=== PATIENT | male | born 1990 | race Hispanic/Latino ===

== ENCOUNTER 2023-03-30 22:48 | Emergency (ER) | payer BC, SELFPAY ==
--- NOTE | ~2023-03-30 | CT_ITS ---
CT of the Abdomen and Pelvis: Indication: Epigastric pain Technique: 2.5 mm axial scans were obtained through the abdomen and pelvis following intravenous adm inistration of 100 cc of Omnipaque 350. Dose reduction technique was used on this scan by utilizing a utomated exposure control and iterative reconstruction technique. The dose-length product (DLP) was 9 54.11 mGy-cm. Findings: Scans through the lung bases are unremarkable. The liver, spleen, pancreas, gallbladder, adrenals and kidneys are within normal limits. No evidence of aortic aneurysm. No lymphadenopathy. No bowel obstruction or bowel wall thickening. There is no evidence to suggest acute appendicitis. Mo derate fat-containing umbilical hernia present. Images through the pelvis were performed. Urinary bladder unremarkable. Prostate gland and seminal ve sicles are unremarkable. No ascites. Impression: Moderate fat-containing umbilical hernia. Reviewed, dictated and finalized at [facility]. CTOR OF GUIDANCE Impression: Moderate fat-containing umbilical hernia.
[2023-03-30 22:50] VITALS: BP 126/51; PULSE 71; RESP 20; TEMP 36.8; O2SAT 100
--- NOTE | 2023-03-30 23:51 | ECG_ITS ---
Measurements Intervals [place] Rate: 69 P: 62 [place]: 233 QRS: 14 QRSD: 88 T: 39 QT: 370 QTc: 397 Interpretive Statements SINUS RHYTHM WITH FIRST DEGREE AV BLOCK BORDERLINE ECG NO PREVIOUS ECG AVAILABLE FOR COMPARISON Electronically Signed On 03-31-2023 5:29:15 [employer]OW [employer] C[employer] by Jono Chapa D.O.
--- NOTE | 2023-03-31 00:07 | ED.ABDPAIN ---
HPI - Abdominal Pain General Chief Complaint: Abdominal Pain Stated Complaint: abd pain Time Seen by Provider: 03/30/23 23:24 Source: patient Mode of arrival: ambulatory Limitations: no limitations History of Present Illness HPI narrative: This is a 33 year old male that presents to the ER for epigastric pain. Ongoing over the last couple of hours. Reports associated nausea, without vomiting. Also reports shortness of breath. Reports the pain radiates into his chest and back. Denies fevers. Related Data Allergies Allergy/AdvReac Type Severity Reaction Status Date / Time No Known Allergies Allergy Verified 03/31/23 00:04 Review of Systems Review of Systems: CONSTITUTIONAL: Denies fever CARDIOVASCULAR: Reports chest pain. Denies edema. RESPIRATORY: Reports dyspnea. GASTROINTESTINAL: Reports abdominal pain, nausea. Denies vomiting, or diarrhea. All systems reviewed & are unremarkable except as noted in HPI and below PMFSH Past Medical History Medical History (Updated 03/31/23 @ 02:43 by Linnette Wilcox PA-C) No active medical problems Social History Social History (Updated 03/31/23 @ 00:10 by Linnette Wilcox PA-C) Substance use: never Exam Narrative: GENERAL: Well-appearing, well-nourished, and in no acute distress. HEAD: Normocephalic, atraumatic. EYES: EOMI. CHEST: Clear to auscultation. No respiratory distress. No wheezes rales or rhonchi HEART: Regular rate and rhythm. No murmur heard. Normal peripheral pulses. ABDOMEN: Soft, nondistended, normal active bowel sounds. Tender to palpation in the epigastrium, without guarding EXTREMITIES: Normal range of motion. No edema. SKIN: Warm, dry, no rash. NEURO: No focal deficits. Alert and oriented x3. PSYCH: Normal mood and affect Course Course Emergency Course: Patient updated on workup and agrees with plan of care. Reports feeling much better Consultations Consultation #1: Spoke with Dr. Davis about patient and workup who agrees with low fat diet and follow up in clinic Date: 03/31/23 Vital Signs Vital signs: Vital Signs Temperature 98.2 F 03/30/23 22:50 Pulse Rate 71 03/30/23 22:50 Respiratory Rate 20 03/30/23 22:50 Blood Pressure 126/51 L 03/30/23 22:50 Pulse Oximetry 100 03/30/23 22:50 Oxygen Delivery Room Air 03/30/23 22:50 Temperature 98.2 F 03/30/23 22:50 Pulse Rate 79 03/31/23 00:31 Respiratory Rate 17 03/31/23 00:31 Blood Pressure 110/80 03/31/23 00:31 Pulse Oximetry 97 03/31/23 00:31 Oxygen Delivery Room Air 03/30/23 22:50 MDM - Abdominal Pain MDM Narrative Medical decision making narrative: Patient presents to the emergency department for epigastric pain ongoing over the last couple of hours. He is afebrile and nontoxic appearing. Cbc without leukocytosis. Metabolic panel with mild elevation in ALT to 66. Lipase is normal. UA without evidence of infection. CT abdomen and pelvis shows mildly distended gallbladder with wall thickening and pericholecystic stranding. Patient updated on workup and agrees with plan of care. Reports feeling much better. Spoke with Dr. Davis about patient and workup who agrees with low fat diet and follow up in clinic. Patient was given warnings to return to the ER Differential Diagnosis Differential diagnosis: Likely pancreatitis and other (biliary colic, PE) Lab Data Attestation: I reviewed the patient's lab results. 03/30/23 23:50 03/30/23 23:50 Labs: Lab Results 03/30/23 03/30/23 Range/Units 23:50 23:59 WBC 7.7 (4.5-10.0) K/mm3 RBC 5.41 (4.6-6.20) M/mm3 Hgb 15.8 (14.0-18.0) g/dL Hct 45.9 (42.0-52.0) % MCV 84.8 (80-100) fl MCH 29.2 (26-34) pg MCHC 34.4 (32-36) g/dl RDW 11.8 (11.5-14.5) % Plt Count 274 (150-375) k/mm3 MPV 9.7 (7.4-10.4) fl Immature Gran % (Auto) 0.4 (0-0.5) % Neut % (Auto) 64.9 (45.5-73.1) % Lymph % (Auto) 25.8 (18.3-44.2) % Edwards %
[2023-03-31 00:12] LABS: Appearance Urine Clear (Clear); Bilirubin Urine Negative (Negative); Blood Urine Negative (Negative); Color Urine Yellow (Yellow); Glucose Urine UA Negative (Negative); Ketones Urine Negative (Negative); Leukocyte Esterase Ur Negative LEU/UL (Negative); Nitrate Urine Negative (Negative); Protein Urine Negative (Negative); pH Urine 7.5 (5.0-9.0)
[2023-03-31 00:14] LABS: Alanine Aminotransferase 66 U/L (6-50); Albumin Level 4.1 g/dL (3.5-5.1); Alkaline Phosphatase 101 U/L (38-126); Anion Gap 7 mmol/L (8-16); Aspartate Amino Transferase 34 U/L (17-59); Bilirubin,Total 0.5 mg/dL (0.2-1.3); Blood Urea Nitrogen 14 mg/dL (9-20); Calcium 9.1 mg/dL (8.4-10.2); Carbon Dioxide 30 mmol/L (22-30); Chloride 101 mmol/L (98-107); Estimated CRCL calculation 126 ml/min; Estimated Glomerular Filt Rate > 60; Glucose 84 mg/dL (65-110); Hematocrit 45.9 % (42.0-52.0); Hemoglobin 15.8 g/dL (14.0-18.0); Lipase 179 U/L (23-300); Mean Corpuscular Volume 84.8 fl (80-100); Potassium 3.5 mmol/L (3.4-5.0); Red Blood Count 5.41 M/mm3 (4.6-6.20); Sodium 138 mmol/L (137-145); White Blood Count 7.7 K/mm3 (4.5-10.0)
[2023-03-31 00:15] LABS: Basophils Percent Auto 0.5 % (0.2-1.2); Eosinophils Absolute Auto 0.1 K/mm3 (0-0.3); Eosinophils Percent Auto 0.9 % (0-4.4); Immature Granulocyte Absolute 0.03 K/mm3 (0.00-0.031); Immature Granulocyte Percent A 0.4 % (0-0.5); Lymphocytes Absolute Auto 1.99 K/mm3 (0.9-3.2); Lymphocytes Percent Auto 25.8 % (18.3-44.2); Mean Corpuscular HGB Conc 34.4 g/dl (32-36); Mean Corpuscular Hemoglobin 29.2 pg (26-34); Mean Platelet Volume 9.7 fl (7.4-10.4); Monocytes Absolute Auto 0.6 K/mm3 (0.1-0.6); Monocytes Percent Auto 7.5 % (2.6-8.5); Neutrophils Percent Auto 64.9 % (45.5-73.1); Platelet Count Result 274 k/mm3 (150-375); Red Cell Distribution Width 11.8 % (11.5-14.5)
[2023-03-31] MEDS: ONDANSETRON INJ 4 MG/2 ML VIAL IV PUSH (00:15)
[2023-03-31] MEDS: PANTOPRAZOLE SODIUM IV 40 MG VIAL IV PUSH (00:15)
[2023-03-31] MEDS: MORPHINE SULFATE (*CRX) 4 MG/ML INJ IV PUSH (00:15)
[2023-03-31 00:26] LABS: Add Urine Microscopic? NO
[2023-03-31 00:31] VITALS: BP 110/80; PULSE 79; RESP 17; O2SAT 97
[2023-03-31 00:38] LABS: Troponin I < 0.012 ng/mL (0.000-0.034)
[2023-03-31 00:40] LABS: Influenza A QL RT-PCR Negative (Negative); Influenza B QL RT-PCR Negative (Negative); RSV RNA, RT-PCR Negative (Negative); SARS-CoV-2 RNA PCR Negative (Negative)
[2023-03-31 00:56] LABS: D Dimer < 0.27 ug/mL (<0.48)
[2023-03-31 03:22] VITALS: BP 120/81; PULSE 75; RESP 16; O2SAT 100
== END 2023-03-31 03:30 | disposition home or self-care (01) ==
PROVIDERS: Emergency Provider Physician Assistant
DX: K80.50 Calculus of bile duct without cholangitis or cholecystitis without obstruction (principal); Z20.822 Contact with and (suspected) exposure to COVID-19; I44.0 Atrioventricular block, first degree; K42.9 Umbilical hernia without obstruction or gangrene
CPT/HCPCS: 36415; 74177; 80053; 81003; 83690; 84484; 85025; 85380; 87637; 93005; 96374; 96375; 99284; C9113; J2270; J2405; Q9967

== ENCOUNTER → 2023-04-12 08:14 | Outpatient (CLI) | payer BC, SELFPAY ==
--- NOTE | ~2023-04-12 | US_ITS ---
US right upper quadrant INDICATION: Right upper quadrant pain PROCEDURE: Realtime right upper abdominal ultrasound. COMPARISON: No prior studies for comparison. FINDINGS: The pancreas is normal without focal mass or pancreatic ductal dilation. Liver echotexture is normal without focal mass or intrahepatic biliary dilatation. There is normal directional flow i n the portal vein. Gallbladder wall is thickened. There are gallstones. Common bile duct measures 4 mm. No sonographic Ruano's sign. IMPRESSION: 1: Cholelithiasis with gallbladder wall thickening. Consider cholecystitis in the appropriate clinica l setting. Reviewed, dictated and finalized at location B. TRON[facility] SPECIALIST IMPRESSION: 1: Cholelithiasis with gallbladder wall thickening. Consider cholecystitis in t he appropriate clinical setting.
== END ==
PROVIDERS: PCP Surgery; Visit Provider Surgery
DX: R10.11 Right upper quadrant pain (principal); K80.20 Calculus of gallbladder without cholecystitis without obstruction
CPT/HCPCS: 76705

== ENCOUNTER 2023-06-03 09:37 | Observation (INO) | payer BC, SELFPAY ==
--- NOTE | ~2023-06-03 | MR_ITS ---
EXAMINATION: MR MRCP wo/w con/w 3D wo ind DATE: 06/04/2023 11:05 INDICATION: Right upper quadrant abdominal pain. Choledocholithiasis. Acute pancreatitis without necr osis or infection. TECHNIQUE: Magnetic resonance imaging (MRI) of the abdomen was performed without and with 18 mL Multi Mohamud intravenous contrast. Sequences included coronal T2-weighted FS FSE, coronal T2-weighted FSE, a xial T1-weighted LAVA, coronal FS FIESTA, axial dual-echo T1-weighted SPGR, coronal lava-FLEX, sagitt al T2-weighted FSE, axial T2-weighted FSE, and axial DWI. Thick-slab T2-weighted FSE images were obta ined for magnetic resonance cholangiopancreatography (MRCP). Maximum intensity projection 3-D reconst ructions of the volumetric data were created by the technologist. Postcontrast sequences included cor onal LAVA-flex and time course of axial T1-weighted LAVA. COMPARISON: Abdomen ultrasound 06/03/2023, CT abdomen and pelvis 03/31/2023 FINDINGS: ABDOMEN MRI: The liver and spleen are normal. The gallbladder is normal in size. There is a gallstone in the gallbladder. The pancreas, adrenal glands, and kidneys are normal. There are no dilated loops of bowel. There are no pathologically enlarged lymph nodes. There is no free intraperitoneal fluid. ABDOMEN MRCP: The common duct is normal and measures 4 mm. No choledocholithiasis. IMPRESSION: 1. Cholelithiasis. No choledocholithiasis. Reviewed, dictated and finalized at location A.
--- NOTE | ~2023-06-03 | US_ITS ---
EXAMINATION: US right upper quadrant DATE: 06/03/2023 13:02 INDICATION: Abdominal pain. TECHNIQUE: Multiple grayscale and Doppler ultrasound images of the abdomen were obtained. COMPARISON: Ultrasound abdomen 04/12/2023, CT abdomen and pelvis 03/31/2023 FINDINGS: The visualized portions of the head, body, and tail of the pancreas are normal. The liver i s normal without focal lesion. There is normal flow in main portal vein. The gallbladder is normal in size and contains sludge. No visible gallstones or gallbladder wall thickening. There is no sonograp hic Ruano sign. The common duct is normal and measures 6 mm. IMPRESSION: 1. Gallbladder sludge. No evidence of acute cholecystitis. Reviewed, dictated and finalized at location A.
[2023-06-03 09:58] VITALS: BP 128/76; PULSE 62; RESP 16; TEMP 36.4; O2SAT 100
[2023-06-03 11:44] LABS: Basophils Absolute Auto 0.1 K/mm3 (0.0-0.1); Basophils Percent Auto 0.7 % (0.2-1.2); Eosinophils Percent Auto 0.4 % (0-4.4); Hematocrit 48.5 % (42.0-52.0); Hemoglobin 16.2 g/dL (14.0-18.0); Immature Granulocyte Absolute 0.03 K/mm3 (0.00-0.031); Immature Granulocyte Percent A 0.3 % (0-0.5); Lymphocytes Absolute Auto 1.15 K/mm3 (0.9-3.2); Lymphocytes Percent Auto 11.7 % (18.3-44.2); Mean Corpuscular HGB Conc 33.4 g/dl (32-36); Mean Corpuscular Hemoglobin 28.8 pg (26-34); Mean Corpuscular Volume 86.1 fl (80-100); Monocytes Absolute Auto 0.8 K/mm3 (0.1-0.6); Monocytes Percent Auto 8.2 % (2.6-8.5); Neutrophils Absolute Auto 7.7 K/mm3 (1.3-6.7); Neutrophils Percent Auto 78.7 % (45.5-73.1); Platelet Count Result 230 k/mm3 (150-375); Red Blood Count 5.63 M/mm3 (4.6-6.20); Red Cell Distribution Width 11.9 % (11.5-14.5); White Blood Count 9.8 K/mm3 (4.5-10.0)
[2023-06-03 11:46] LABS: Appearance Urine Clear (Clear); Bilirubin Urine Negative (Negative); Blood Urine Negative (Negative); Color Urine Yellow (Yellow); Glucose Urine UA Negative (Negative); Ketones Urine Negative (Negative); Leukocyte Esterase Ur Negative LEU/UL (Negative); Nitrate Urine Negative (Negative); Protein Urine Negative (Negative); Specific Grav Ur 1.013 (1.001-1.035)
[2023-06-03 11:50] LABS: Add Urine Microscopic? NO
[2023-06-03 11:58] LABS: Alanine Aminotransferase 142 U/L (6-50); Albumin Level 4.5 g/dL (3.5-5.1); Alkaline Phosphatase 112 U/L (38-126); Anion Gap 6 mmol/L (8-16); Aspartate Amino Transferase 219 U/L (17-59); Bilirubin,Total 1.2 mg/dL (0.2-1.3); Blood Urea Nitrogen 10 mg/dL (9-20); Calcium 9.3 mg/dL (8.4-10.2); Carbon Dioxide 29 mmol/L (22-30); Chloride 102 mmol/L (98-107); Estimated CRCL calculation 125 ml/min; Estimated Glomerular Filt Rate > 60; Glucose 98 mg/dL (65-110); Lipase 626 U/L (23-300); Potassium 3.8 mmol/L (3.4-5.0); Sodium 137 mmol/L (137-145)
--- NOTE | 2023-06-03 12:18 | ED.ABDPAIN ---
HPI - Abdominal Pain General Chief Complaint: Abdominal Pain Stated Complaint: GALLBLADDER PAIN Time Seen by Provider: 06/03/23 11:32 History of Present Illness HPI narrative: Patient is a 33-year-old male who presents ER with right upper quadrant abdominal pain radiating to his back. Patient has known history of gallstones. He was supposed to have surgery on 05/31/2023 to have his gallbladder removed. Because he had had pain over last 2 months since starting a low-fat diet he canceled his surgery. Pain reoccurred in last 2 days. He is having nausea as well. He is taking some Sigurd with minimal relief. Related Data Allergies Allergy/AdvReac Type Severity Reaction Status Date / Time No Known Allergies Allergy Verified 06/03/23 11:31 Review of Systems Review of Systems: All systems reviewed & are unremarkable except as noted in HPI and below Constitutional: Constitutional: Reports no additional constitutional complaints ENT: Reports system reviewed and no additional complaints, except as documented Cardiovascular: Cardiovascular: Reports no additional cardiovascular complaints Respiratory: Respiratory: Reports no additional respiratory complaints Gastrointestinal: Gastrointestinal: Reports abdominal pain, Reports nausea and Denies vomiting PMFSH Past Medical History Medical History No active medical problems Surgical History Surgical History No pertinent past surgical history Family History Family History Other Cancer Diabetes mellitus Hypertension Social History Social History Smoking status: Former smoker Alcohol intake: current Alcohol use details: socially Substance use: never Do You Feel Safe in your Home?: Yes Lack of Transportation: No Lack of Food: Never True Current Housing: I Have Housing Concerned About Future Housing: No Difficulty Paying Gas/Electric Bills: No Difficulty Paying for Meds: No Currently Unemployed: No Education: Decline to Answer Difficulty w/ Childcare or Family Care: No Occupation/Education: occupation 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 HEAD: Normocephalic, atraumatic. EYES: PERRL and EOMI. ENT: Mucous membranes moist. NECK: Supple. CHEST: Clear to auscultation. No respiratory distress. HEART: Regular rate and rhythm. Normal peripheral pulses. ABDOMEN: Soft, Mild TTP to the RUQ w/o guarding, nondistended. EXTREMITIES: Normal range of motion. No edema. SKIN: Warm, dry, no rash. NEURO: Alert and oriented x3. PSYCH: Normal mood and affect. Course Course Emergency Course: Discussed case with General surgery. Recommends admission to hospitalist service as well as GI consultation as patient may need MRCP if there is a dilated duct on ultrasound. GI also consulted. Patient accepted by the hospitalist service. Vital Signs Vital signs: Vital Signs Temperature 97.6 F 06/03/23 09:58 Pulse Rate 62 06/03/23 09:58 Respiratory Rate 16 06/03/23 09:58 Blood Pressure 128/76 06/03/23 09:58 Pulse Oximetry 100 06/03/23 09:58 Oxygen Delivery Room Air 06/03/23 09:58 Temperature 98.7 F 06/03/23 14:07 Pulse Rate 70 06/03/23 14:07 Respiratory Rate 17 06/03/23 14:07 Blood Pressure 118/70 06/03/23 14:07 Pulse Oximetry 100 06/03/23 14:07 Oxygen Delivery Room Air 06/03/23 17:46 MDM - Abdominal Pain Lab Data 06/03/23 11:30 06/03/23 11:30 Labs: Lab Results 06/03/23 Range/Units 11:30 WBC 9.8 (4.5-10.0) K/mm3 RBC 5.63 (4.6-6.20) M/mm3 Hgb 16.2 (14.0-18.0) g/dL Hct 48.5 (42.0-52.0) %
[2023-06-03 14:07] VITALS: BP 118/70; PULSE 70; RESP 17; TEMP 37.1; O2SAT 100
[2023-06-03] MEDS: SODIUM CHLORIDE 0.9% IV 1,000 ML 125 ML IV CONT ×2 (14:08→23:21)
--- NOTE | 2023-06-03 14:15 | PM.CNGS ---
Assessment and Plan Assessment and plan (1) Biliary colic: Code(s): K80.50 - Calculus of bile duct without cholangitis or cholecystitis without obstruction Status: Acute Assessment and Plan: Patient has presented on two separate occasions to the ER with biliary colic. His initial US two months ago showed gallstones with gallbladder wall thickening. His RUQ US today showed gallbladder sludge, without any evidence of acute cholecystitis. His abdominal pain has completely resolved. He has no abdominal tenderness on exam in the right upper quadrant. The patient was actually scheduled for an elective laparoscopic cholecystectomy earlier this week and canceled since he was feeling better after switching to a low-fat diet. He is now wanting to have surgery given another episode of abdominal pain and recurrent issues with his gallbladder. This time, he was found to have an elevated lipase and there is concern for acute biliary pancreatitis. We will await GI consultation and any further evaluation for possible choledocholithiasis. The patient will eventually need a laparoscopic cholecystectomy, but there is no indication for urgent cholecystectomy at this time. Will continue to follow along. Repeat labs again in the morning. (2) Acute pancreatitis: Code(s): K85.90 - Acute pancreatitis without necrosis or infection, unspecified Status: Acute Assessment and Plan: Lipase 600 on admission. No heavy alcohol use. No history of pancreatitis. This is likely biliary related. His abdominal pain has resolved and he is completely nontender on exam. Will await GI consultation. He will need an eventual laparoscopic cholecystectomy. (3) Elevated LFTs: Code(s): R79.89 - Other specified abnormal findings of blood chemistry Status: Acute Assessment and Plan: AST and ALT elevated. Total bilirubin 1.2, which is the high end of normal. Given the elevated lipase as well, there is a concern for choledocholithiasis. GI consulted. Repeat labs in am. (4) Umbilical hernia without mention of obstruction or gangrene: Qualifiers: Obstruction and gangrene presence: without obstruction or gangrene Qualified Code(s): K42.9 - Umbilical hernia without obstruction or gangrene Code(s): K42.9 - Umbilical hernia without obstruction or gangrene Status: Acute Assessment and Plan: Patient has a small incarcerated umbilical hernia that does cause him pain at times and is tender on exam. This was seen as an outpatient as well and Dr. Davis had offerred to potentially repair this at the time of his cholecystectomy. This decision will be deferred to the surgeon whenever he eventually has his surgery. Plan I have discussed the patient's case and plan of care with Dr. Ritter. History of Present Illness Consult details Consult date: 06/03/23 Reason for consult: other (Biliary colic) Requesting physician: Herber Ordaz MD Narrative: This is a 33 year old man who presented to the ER today with complaints of epigastric pain. He has had previous episodes of similar pain that led him to an ER visit in March of this year. Workup suggested acute cholecystitis. His symptoms improved in the ER and he was discharged home with follow-up with Dr. Davis. He was seen in our office and then scheduled for an elective laparoscopic cholecystectomy earlier this week. His symptoms improved after switching to a low-fat diet. He was nervous about having surgery and since he was feeling better, he decided to cancel his surgery. Over the past few days, he started noticing some very mild intermittent epigastric abdominal pain following his low-fat meals. It was very mild pain that would resolved spontaneously. This morning, he woke up and ate an apple. He noticed the same abdominal pain. About an hour later, he ate oatmeal and his pain became much more severe. This prompted him to come back to the ER for evaluation. His white
--- NOTE | 2023-06-03 15:10 | PM.IMHP ---
H&P: HPI History of Present Illness Date/Time: 06/03/23 15:10 Chief Complaint: Abdominal Pain Narrative: 33 y/o M presents here with epigastric pain with PMH of cholelithiasis. Patient presents to the ED from home for evaluation of recurrent epigastric pain. Patient had similar symptoms in Mar and workup showed cholelithiasis/cholecystitis in the appropriate clinical setting. Patient was discharged home with General Surgery follow-up with Geeta on 04/07/23 after pain resolved. Patient had scheduled elective laparoscopic cholecystectomy on 05/30. Patient ultimately cancelled procedure after he started a low fat diet and symptoms resolved completely. He also voiced some nervousness about procedures. Presented today with recurrent epigastric pain that was first noted on Wednesday. Pain occurring post-consumption of low fat meals. Pain would resolve without intervention. Today he ate an apple which was followed by same pain, then ate oatmeal and same pain reoccurred/was more severe. Alcohol use - social drinker, infrequent. LBM today. Initial VS at presentation: 97.6 F, HR 62, RR 16, 120/76, 100% on RA. ED workup showed: No leukocytosis, no anemia, creatinine 0.8, AST 209, ALT 142, normal total bili and alk-phos, and lipase 626. Ultrasound upper quadrant showed gallbladder sludge without evidence of acute cholecystitis. Review of Systems Review of Systems: All systems reviewed & are unremarkable except as noted in HPI and below [facility] Past Medical History Medical History No active medical problems Surgical History Surgical History No pertinent past surgical history Family History Family History Other Cancer Diabetes mellitus Hypertension Social History Social History Smoking status: Former smoker Alcohol intake: current Alcohol use details: socially Substance use: never Do You Feel Safe in your Home?: Yes Lack of Transportation: No Lack of Food: Never True Current Housing: I Have Housing Concerned About Future Housing: No Difficulty Paying Gas/Electric Bills: No Difficulty Paying for Meds: No Currently Unemployed: No Education: Decline to Answer Difficulty w/ Childcare or Family Care: No Occupation/Education: occupation 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 Spiritual care concerns: No Meds Home Medications and Allergies Home Medications Medication Instructions Recorded Confirmed Type hydrocodone 5 mg-acetaminophen 325 1 tablet PO Q8H PRN pain #14 tabs 03/31/23 06/03/23 Rx mg tablet Allergies Allergy/AdvReac Type Severity Reaction Status Date / Time No Known Allergies Allergy Verified 06/03/23 11:31 Vital Signs Vital Signs - 24 hr 06/03/23 09:58 06/03/23 14:07 Temperature 97.6 F 98.7 F Pulse Rate 62 70 Respiratory Rate 16 17 Blood Pressure 128/76 118/70 Pulse Oximetry 100 100 Oxygen Delivery Room Air Exam Narrative: tenderness with deep palpation to RUQ. Const: General: comfortable and no acute distress Other: , male, nontoxic appearance HENMT: Face/Nose/Sinus: Normal nares present Mouth: Yes moist mucous membranes Eyes: General: appearance normal, both eyes and all related structures Sclera: sclerae normal Pupils: Equal, round and reactive pupils present EOM: EOMs intact bilaterally Resp: Effort & Inspection: normal respiratory effort Auscultation: clear to auscultation bilaterally Cardio: Rate: regular rate Rhythm: regular rhythm Other: S1-S2 present without murmur, rub, ectopy GI: GI Palp: Yes Soft to palpation Other: Nondistended, tender with deep palpation to the RUQ, normal bowel sounds throughout. Skin: General skin exam: normal color and no ra
[2023-06-03 16:19] VITALS: BMI 27.1
[2023-06-03 22:00] VITALS: BP 118/65; PULSE 58; RESP 16; TEMP 36.8; O2SAT 98
[2023-06-04 06:28] VITALS: BP 120/62; PULSE 62; RESP 18; TEMP 36.7; O2SAT 99
[2023-06-04 06:43] LABS: Basophils Percent Auto 0.8 % (0.2-1.2); Eosinophils Absolute Auto 0.1 K/mm3 (0-0.3); Eosinophils Percent Auto 1.4 % (0-4.4); Hematocrit 45.3 % (42.0-52.0); Hemoglobin 15.4 g/dL (14.0-18.0); Immature Granulocyte Absolute 0.01 K/mm3 (0.00-0.031); Immature Granulocyte Percent A 0.2 % (0-0.5); Lymphocytes Absolute Auto 1.44 K/mm3 (0.9-3.2); Lymphocytes Percent Auto 28.9 % (18.3-44.2); Mean Corpuscular Hemoglobin 29.5 pg (26-34); Mean Corpuscular Volume 86.8 fl (80-100); Mean Platelet Volume 10.1 fl (7.4-10.4); Monocytes Absolute Auto 0.5 K/mm3 (0.1-0.6); Monocytes Percent Auto 10.4 % (2.6-8.5); Neutrophils Absolute Auto 2.9 K/mm3 (1.3-6.7); Neutrophils Percent Auto 58.3 % (45.5-73.1); Platelet Count Result 186 k/mm3 (150-375); Red Blood Count 5.22 M/mm3 (4.6-6.20); Red Cell Distribution Width 11.9 % (11.5-14.5)
[2023-06-04 07:49] LABS: Alanine Aminotransferase 248 U/L (6-50); Albumin Level 3.7 g/dL (3.5-5.1); Alkaline Phosphatase 175 U/L (38-126); Anion Gap 5 mmol/L (8-16); Aspartate Amino Transferase 275 U/L (17-59); Bilirubin,Total 2.2 mg/dL (0.2-1.3); Blood Urea Nitrogen 8 mg/dL (9-20); Calcium 8.6 mg/dL (8.4-10.2); Carbon Dioxide 26 mmol/L (22-30); Chloride 108 mmol/L (98-107); Cholesterol 150 mg/dL (0-200); Estimated CRCL calculation 112 ml/min; Estimated Glomerular Filt Rate > 60; Glucose 89 mg/dL (65-110); HDL Direct 29 mg/dL; Lipase 187 U/L (23-300); Sodium 139 mmol/L (137-145); Triglycerides 72 mg/dL (<150)
[2023-06-04 07:53] LABS: LDL Cholesterol Direct 106 mg/dL
[2023-06-04] MEDS: SODIUM CHLORIDE 0.9% IV 1,000 ML 70 ML IV CONT ×2 (08:17→21:33)
[2023-06-04 10:09] LABS: Hepatitis B Surface Antigen Negative (Negative)
[2023-06-04 10:14] LABS: HAV RESULT Negative (Negative); Hepatitis B Core IgM Result Negative (Negative)
[2023-06-04 10:26] LABS: Hepatitis C Virus Antibody Negative (Negative)
--- NOTE | 2023-06-04 12:30 | PM.IMPN ---
Progress Note: A&P Assessment and Plan (1) Biliary colic: Code(s): K80.50 - Calculus of bile duct without cholangitis or cholecystitis without obstruction Status: Acute Assessment and Plan: Patient presents with recurrent epigastric pain, first evaluated in Mar. RUQ March 2023 showing cholelithiasis with GB wall thickening. Planned elective cholecystectomy for 05/30 but patient cancelled b/c pain resolved with low fat diet Returns for recurrent pain. RUQ US showing GB sludge but no evidence of cholecystitis and nml CBD. Lipase mildly elevated. LFTs elevated. GenSurg consulted. MRCP ordered Continue clear liquids. Follow up on MRCP results. (2) Acute pancreatitis: Code(s): K85.90 - Acute pancreatitis without necrosis or infection, unspecified Status: Acute Assessment and Plan: Presumably has pancreatitis with pain and lipase of 626 Passed stone? since none seen on current US Denies alcohol use. TG normal. Lipase normal now and pain better. Follow (3) Elevated LFTs: Code(s): R79.89 - Other specified abnormal findings of blood chemistry Status: Acute Assessment and Plan: AST 219, ALT 142, TB 1.2, AP 112 Related to passed stone? Hepatitis panel negative. LFTs slightly worse now. GI has been consulted, awaiting recs Trend LFTs (4) Umbilical hernia without mention of obstruction or gangrene: Qualifiers: Obstruction and gangrene presence: without obstruction or gangrene Qualified Code(s): K42.9 - Umbilical hernia without obstruction or gangrene Code(s): K42.9 - Umbilical hernia without obstruction or gangrene Status: Acute Assessment and Plan: CT scan in March 2023 showing moderate fat-containing umbilical hernia GenSurg following Dr Davis previously offered potential repair during the previously scheduled elective cholecystectomy Plan Diet: clear liquid GI Prophylaxis: pantoprazole IVP DVT Prophylaxis: SCDs Lines: peripheral Code Status: Full Code Subjective Date/time seen: 06/04/23 12:30 Interval history: 33yo healthy male with cholelithiasis here with epigastric pain. Mild abdominal pain now. Pain worse with food and even water. No diarhea. No nausea. Family in the room and helps with translation. Exam Narrative: AF 98.1 120/62 62 18 99% ra Gen - NARD Chest - CTA bilaterally, nml RR CV - RRR S1/S2 Abd - Soft, NT/ND, Positive BS Ext - No pedal edema Neuro - Alert and oriented. Nonfocal exam. Psych - Nml mood and affect Skin - Warm and dry Objective Data Vital Signs Vital Signs: Vital Signs - 24 hr 06/03/23 14:07 06/03/23 17:46 06/03/23 20:00 Temperature 98.7 F Pulse Rate 70 Respiratory Rate 17 Blood Pressure 118/70 Pulse Oximetry 100 Oxygen Delivery Room Air Room Air 06/03/23 22:00 06/04/23 06:28 06/04/23 08:00 Temperature 98.2 F 98.1 F Pulse Rate 58 L 62 Respiratory Rate 16 18 Blood Pressure 118/65 120/62 Pulse Oximetry 98 99 Oxygen Delivery Room Air Intake/Output Intake/Output: Intake & Output 06/01/23 06/02/23 06/03/23 06/04/23 23:59 23:59 23:59 23:59 Intake Total 1000 1600 Balance 1000 1600 Meds/Results Medications: Active Medications Generic Name Dose Route Start Last Admin Trade Name Freq PRN Reason Stop Dose Admin Acetaminophen 500 mg 06/03/23 15:46 Acetaminophen 500 Mg Tablet PO Q4H PRN Mild Pain (1-3) or Fever Hydrocodone Bitart/Acetaminophen 1 tab 06/03/23 15:46 Hydrocodone/Acetaminophen (*Crx) 5-325 Mg Tablet PO Q6H PRN Pain Rated 4-6 Sodium Chloride 1,000 mls @ 70 mls/hr 06/03/23 13:35 06/04/23 08:17 Normal Saline Iv IV CONT 70 mls/hr .[id number] TYRELL Administration Morphine Sulfate 2 mg 06/03/23 13:31 Morphine Sulfate (*Crx) 2 Mg/Ml Inj IV PUSH Q2H PRN Pain Rated 7-10 Ondansetron HCl 4 mg 06/03/23 13:31 Ondansetron Inj 4 Mg/2 [address]
[2023-06-04] MEDS: PANTOPRAZOLE SODIUM IV 40 MG VIAL IV PUSH (13:11)
[2023-06-04 13:59] VITALS: O2SAT 97
[2023-06-04 14:42] VITALS: BP 113/61; PULSE 64; RESP 18; TEMP 36.7; O2SAT 97
--- NOTE | 2023-06-04 17:57 | WPDGICN ---
Assessment and Plan Assessment and plan (1) Gallstone pancreatitis: Code(s): K85.10 - Biliary acute pancreatitis without necrosis or infection Status: Acute Assessment and Plan: he is doing better found cholelithiasis, mrcp with normal CBD- no need of ercp surgery on board, patient will need lap chol (2) Elevated LFTs: Code(s): R79.89 - Other specified abnormal findings of blood chemistry Status: Acute Assessment and Plan: will trend, this is from gs pancreatitis nad cholelithiasis (3) Biliary colic: Code(s): K80.50 - Calculus of bile duct without cholangitis or cholecystitis without obstruction Status: Acute (4) RUQ abdominal pain: Code(s): R10.11 - Right upper quadrant pain Status: Acute (5) Nausea: Code(s): R11.0 - Nausea Status: Acute Assessment and Plan: better on liquid diet GI Consult Note Consult date/time: 06/04/23 17:57 Reason for consult: GS pancreatitis, elevated liver enzymes HPI: Desean Boyd is a 33 year old male male. He has previous presentation to ER and diagnosed with acute cholecystitis, then he was scheduled to have lap lorenzo but he decided to cancel since he was back to his baseline. Again last few days with mild intermittent epigastric abdominal pain after low-fat meals.?Day of admission with severe pain after had oatmeal then he returned to ER. His white blood cell count was 9800 with a left shift, total bilirubin 1.2, AST 219, ALT 142, alk-phos 112, and lipase 626.? Right upper quadrant ultrasound showed gallbladder sludge, no evidence of acute cholecystitis. CBD normal. He denies any heavy alcohol use. Denies history of pancreatitis. MRCP cholelithiasis with normal CBD without stones. He is feeling better now and having CL diet. Review of Systems Constitutional: Constitutional: Denies chills Eyes: Eyes: Denies blurry vision ENT: Reports Normal hearing present Cardiovascular: Cardiovascular: Denies chest pain Respiratory: Respiratory: Denies chest congestion Gastrointestinal: Gastrointestinal: Reports abdominal pain and Reports nausea Genitourinary: Genitourinary: Denies hematuria Musculoskeletal: Musculoskeletal: Denies myalgias Integumentary/Breasts: Skin/Breast: Denies rash Neurologic: Denies confusion Psychiatric: Psychiatric: Denies behavioral changes PMFSH Past Medical History Medical History (Updated 06/04/23 @ 18:01 by Al Maloney MD) Gallstone pancreatitis Nausea No active medical problems Surgical History Surgical History No pertinent past surgical history Family History Family History Other Cancer Diabetes mellitus Hypertension Social History Social History Smoking status: Former smoker Alcohol intake: current Alcohol use details: socially Substance use: never Do You Feel Safe in your Home?: Yes Lack of Transportation: No Lack of Food: Never True Current Housing: I Have Housing Concerned About Future Housing: No Difficulty Paying Gas/Electric Bills: No Difficulty Paying for Meds: No Currently Unemployed: No Education: Decline to Answer Difficulty w/ Childcare or Family Care: No Occupation/Education: occupation 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
--- NOTE | 2023-06-04 19:12 | PM.PNGS ---
Progress Note: A&P Assessment and Plan (1) Gallstone pancreatitis: Code(s): K85.10 - Biliary acute pancreatitis without necrosis or infection Status: Acute Assessment and Plan: Lipase is normal today but still having some right upper quadrant pain with eating. Not nearly as severe as when he came into the emergency room. Says he gets this pain every time he eats. No nausea or vomiting (2) Elevated LFTs: Code(s): R79.89 - Other specified abnormal findings of blood chemistry Status: Acute Assessment and Plan: LFTs noted to be slightly elevated yesterday but are more so today. May need MRCP. Concerning for common bile duct stones. (3) Umbilical hernia without mention of obstruction or gangrene: Qualifiers: Obstruction and gangrene presence: without obstruction or gangrene Qualified Code(s): K42.9 - Umbilical hernia without obstruction or gangrene Code(s): K42.9 - Umbilical hernia without obstruction or gangrene Status: Chronic Assessment and Plan: Patient was to have this repaired at his original surgery on the with Dr. Davis and would like it repaired if he does have surgery this admission. Subjective Subjective Date/Time Seen: 06/04/23 19:12 Patient reports: no new complaints, still having pain (It is right upper quadrant pain that goes to his back after he eats), tolerating liquids well and afebrile Review of Systems Review of Systems: All systems reviewed & are unremarkable except as noted in HPI and below (HPI) Exam Const: General: cooperative, comfortable, no acute distress, alert and awake Nutritional Appearance: well nourished Orientation/consciousness: No confusion GI: Inspection: normal to inspection, non-distended, scaphoid and visible herniation (Umbilical) GI Palp: Yes Soft to palpation, Yes Tenderness to palpation present (GI) (Minimal right upper quadrant tenderness, no peritoneal sign), No Guarding due to palpation present (GI), Yes Hernia present umbilical < 3 cm and No Rebound tenderness present Auscultation: normal bowel sounds Skin: General skin exam: normal color (No jaundice) Neuro: General: patient oriented x3 and no focal motor deficits Extrem: General: no calf tenderness and no edema Psych: Affect: normal affect Insight: Good insight present (Psych) Judgement: Good judgement present (Psych) Objective Data Vital Signs Vital Signs: Vital Signs - 24 hr 06/03/23 20:00 06/03/23 22:00 06/04/23 06:28 Temperature 36.8 C 36.7 C Pulse Rate 58 L 62 Respiratory Rate 16 18 Blood Pressure 118/65 120/62 Pulse Oximetry 98 99 Oxygen Delivery Room Air 06/04/23 08:00 06/04/23 13:59 06/04/23 14:42 Temperature 36.7 C Pulse Rate 64 Respiratory Rate 18 Blood Pressure 113/61 Pulse Oximetry 97 97 Oxygen Delivery Room Air Room Air Intake/Output Intake/Output: Intake & Output 06/01/23 06/02/23 06/03/23 06/04/23 23:59 23:59 23:59 23:59 Intake Total 1000 2627 Balance 1000 2627 Meds/Results Medications: Active Medications Generic Name Dose Route Start Last Admin Trade Name Freq PRN Reason Stop Dose Admin Acetaminophen 500 mg 06/03/23 15:46 Acetaminophen 500 Mg Tablet PO Q4H PRN Mild Pain (1-3) or Fever Hydrocodone Bitart/Acetaminophen 1 tab 06/03/23 15:46 Hydrocodone/Acetaminophen (*Crx) 5-325 Mg Tablet PO Q6H PRN Pain Rated 4-6 Sodium Chloride 1,000 mls @ 70 mls/hr 06/03/23 13:35 06/04/23 08:17 Normal Saline Iv IV CONT 70 mls/hr .[id number] TYRELL Administration Morphine Sulfate 2 mg 06/03/23 13:31 Morphine Sulfate (*Crx) 2 Mg/Ml Inj IV PUSH Q2H PRN Pain Rated 7-10 Ondansetron HCl 4 mg 06/03/23 13:31 Ondansetron Inj 4 Mg/2 Ml Vial IV PUSH Q4H PRN Nausea Pantoprazole Sodium 40 mg 06/05/23 09:00 Pantoprazole Sodium Iv 40 Mg Vial IV PUSH QAM [facility] Radiology Results: ITS Impressions [place]
[2023-06-04 22:00] VITALS: BP 115/78; PULSE 66; RESP 16; TEMP 36.6; O2SAT 97
[2023-06-05 05:51] VITALS: BP 129/79; PULSE 61; RESP 16; TEMP 36.8; O2SAT 98
[2023-06-05 06:00] LABS: Basophils Absolute Auto 0.1 K/mm3 (0.0-0.1); Eosinophils Absolute Auto 0.2 K/mm3 (0-0.3); Eosinophils Percent Auto 3.5 % (0-4.4); Hematocrit 44.7 % (42.0-52.0); Hemoglobin 15.3 g/dL (14.0-18.0); Immature Granulocyte Absolute 0.01 K/mm3 (0.00-0.031); Immature Granulocyte Percent A 0.2 % (0-0.5); Lymphocytes Absolute Auto 2.07 K/mm3 (0.9-3.2); Mean Corpuscular HGB Conc 34.2 g/dl (32-36); Mean Corpuscular Hemoglobin 29.4 pg (26-34); Mean Platelet Volume 10.1 fl (7.4-10.4); Monocytes Absolute Auto 0.5 K/mm3 (0.1-0.6); Monocytes Percent Auto 8.1 % (2.6-8.5); Neutrophils Absolute Auto 3.4 K/mm3 (1.3-6.7); Neutrophils Percent Auto 54.2 % (45.5-73.1); Platelet Count Result 185 k/mm3 (150-375); White Blood Count 6.3 K/mm3 (4.5-10.0)
[2023-06-05 06:44] LABS: Alanine Aminotransferase 176 U/L (6-50); Albumin Level 3.7 g/dL (3.5-5.1); Alkaline Phosphatase 170 U/L (38-126); Anion Gap 4 mmol/L (8-16); Aspartate Amino Transferase 80 U/L (17-59); Bilirubin,Total 0.7 mg/dL (0.2-1.3); Blood Urea Nitrogen 7 mg/dL (9-20); Calcium 8.7 mg/dL (8.4-10.2); Carbon Dioxide 27 mmol/L (22-30); Chloride 109 mmol/L (98-107); Estimated CRCL calculation 125 ml/min; Estimated Glomerular Filt Rate > 60; Glucose 92 mg/dL (65-110); Lipase 121 U/L (23-300); Potassium 3.9 mmol/L (3.4-5.0); Sodium 140 mmol/L (137-145)
[2023-06-05] MEDS: PANTOPRAZOLE SODIUM IV 40 MG VIAL IV PUSH (08:26)
--- NOTE | 2023-06-05 11:20 | PM.PNGS ---
Progress Note: A&P Assessment and Plan (1) Gallstone pancreatitis: Code(s): K85.10 - Biliary acute pancreatitis without necrosis or infection Status: Acute Assessment and Plan: resolving, MRCP reviewed, labs normalizing, exam benign, cont low fat diet for now, setup for urgent interval cholecystectomy (2) Umbilical hernia without mention of obstruction or gangrene: Qualifiers: Obstruction and gangrene presence: without obstruction or gangrene Qualified Code(s): K42.9 - Umbilical hernia without obstruction or gangrene Code(s): K42.9 - Umbilical hernia without obstruction or gangrene Status: Chronic Assessment and Plan: small, reducible, will setup for open repair c possible mesh concurrently c cholecystectomy Subjective Subjective Date/Time Seen: 06/05/23 11:20 Interval history: no acute issues, pain improved, meghan low fat diet Review of Systems Review of Systems: All systems reviewed & are unremarkable except as noted in HPI and below Exam Const: General: cooperative, comfortable and no acute distress Resp: Auscultation: clear to auscultation bilaterally Cardio: Rate: regular rate Rhythm: regular rhythm GI: Inspection: normal to inspection and non-distended GI Palp: Yes abdominal tenderness, Yes Soft to palpation, Yes Tenderness to palpation present (GI), No Guarding due to palpation present (GI) and No Rigid due to palpation Other: small (1-2 cm) umbilical hernia Objective Data Vital Signs Vital Signs: Vital Signs - 24 hr 06/04/23 13:59 06/04/23 14:42 06/04/23 22:00 Temperature 36.7 C 36.6 C Pulse Rate 64 66 Respiratory Rate 18 16 Blood Pressure 113/61 115/78 Pulse Oximetry 97 97 97 Oxygen Delivery Room Air 06/05/23 05:51 Temperature 36.8 C Pulse Rate 61 Respiratory Rate 16 Blood Pressure 129/79 Pulse Oximetry 98 Oxygen Delivery Intake/Output Intake/Output: Intake & Output 06/02/23 06/03/23 06/04/23 06/05/23 23:59 23:59 23:59 23:59 Intake Total 1000 3555.7 770 Balance 1000 3555.7 770 Meds/Results Medications: Active Medications Generic Name Dose Route Start Last Admin Trade Name Freq PRN Reason Stop Dose Admin Acetaminophen 500 mg 06/03/23 15:46 Acetaminophen 500 Mg Tablet PO Q4H PRN Mild Pain (1-3) or Fever Hydrocodone Bitart/Acetaminophen 1 tab 06/03/23 15:46 Hydrocodone/Acetaminophen (*Crx) 5-325 Mg Tablet PO Q6H PRN Pain Rated 4-6 Cefazolin Sodium 2 gm in 50 mls @ 100 mls/hr 06/05/23 11:18 Ancef 2 Gm/D5w 50 Ml IVPB 06/05/23 11:47 ONCE ONE Morphine Sulfate 2 mg 06/03/23 13:31 Morphine Sulfate (*Crx) 2 Mg/Ml Inj IV PUSH Q2H PRN Pain Rated 7-10 Ondansetron HCl 4 mg 06/03/23 13:31 Ondansetron Inj 4 Mg/2 Ml Vial IV PUSH Q4H PRN Nausea Pantoprazole Sodium 40 mg 06/05/23 09:00 06/05/23 08:26 Pantoprazole Sodium Iv 40 Mg Vial IV PUSH 40 mg QAM TYRELL Administration Radiology Results: ITS Impressions Upper [place]rant Ultrasound 06/03/23 13:09 IMPRESSION: 1. Gallbladder sludge. No evidence of acute cholecystitis. MRCP 06/04/23 12:30 IMPRESSION: 1. Cholelithiasis. No choledocholithiasis. Labs Labs: Laboratory Results - last 24 hr 06/05/23 05:48 WBC 6.3 RBC 5.20 Hgb 15.3 Hct 44.7 MCV 86.0 MCH 29.4 MCHC 34.2 RDW 12.0 Plt Count 185 MPV 10.1 Immature Gran % (Auto) 0.2 Neut % (Auto) 54.2 Lymph % (Auto) 33.0 Garrard % (Auto) 8.1 Eos % (Auto) 3.5 Baso % (Auto) 1.0 Lymph # (Auto) 2.07 Garrard # (Auto) 0.5 Eos # (Auto) 0.2 Baso # (Auto) 0.1 Abs Immat Gran (auto) 0.01 Absolute Neuts (auto) 3.4 Absolute Nucleated RBC 0.000 Nucleated RBC % 0.0 Sodium 140 Potassium 3.9 Chloride 109 H Carbon Dioxide 27 Anion Gap 4 L BUN 7 L Creatinine 0.80 Estim Creat Clear Calc 125 Estimated GFR > 60 Glucose 92 Calcium 8.7 Total Bilirubin 0.7 AST 80 H ALT 176 H
--- NOTE | 2023-06-05 13:15 | WPDGIPROGNO ---
Progress Note: A&P Assessment and Plan (1) Gallstone pancreatitis: Code(s): K85.10 - Biliary acute pancreatitis without necrosis or infection Status: Acute Assessment and Plan: improved mrcp no bile duct stone lap lorenzo tomorrow (2) Elevated LFTs: Code(s): R79.89 - Other specified abnormal findings of blood chemistry Status: Acute Assessment and Plan: trending down normal bili today (3) Nausea: Code(s): R11.0 - Nausea Status: Acute Assessment and Plan: resolved and tolerating diet (4) RUQ abdominal pain: Code(s): R10.11 - Right upper quadrant pain Status: Acute Assessment and Plan: lap lorenzo (5) Umbilical hernia without mention of obstruction or gangrene: Qualifiers: Obstruction and gangrene presence: without obstruction or gangrene Qualified Code(s): K42.9 - Umbilical hernia without obstruction or gangrene Code(s): K42.9 - Umbilical hernia without obstruction or gangrene Status: Chronic Assessment and Plan: surgery tomorrow Subjective Date/time seen: 06/05/23 13:15 Interval history: doing better, minimal pain in ruq after eating, no nausea, he is comfortable Review of Systems Review of Systems: All systems reviewed & are unremarkable except as noted in HPI and below Exam Const: General: cooperative, comfortable and no acute distress HENMT: Face/Nose/Sinus: Normal nares present Eyes: General: appearance normal, both eyes and all related structures Neck: Neck: supple Resp: Auscultation: clear to auscultation bilaterally Cardio: Rate: regular rate Rhythm: regular rhythm GI: Inspection: normal to inspection and non-distended GI Palp: Yes abdominal tenderness, Yes Soft to palpation, Yes Tenderness to palpation present (GI), No Guarding due to palpation present (GI) and No Rigid due to palpation Other: small (1-2 cm) umbilical hernia Skin: General skin exam: normal color Neuro: Speech: normal speech Motor exam (neuro): 5/5 motor strength present throughout Extrem: General: normal to inspection Psych: Mental Status: mental status grossly normal Objective Data Vital Signs Vital Signs: Vital Signs - 24 hr 06/04/23 13:59 06/04/23 14:42 06/04/23 22:00 Temperature 98.1 F 97.9 F Pulse Rate 64 66 Respiratory Rate 18 16 Blood Pressure 113/61 115/78 Pulse Oximetry 97 97 97 Oxygen Delivery Room Air 06/05/23 05:51 06/05/23 08:25 Temperature 98.3 F Pulse Rate 61 Respiratory Rate 16 Blood Pressure 129/79 Pulse Oximetry 98 Oxygen Delivery Room Air Intake/Output Intake/Output: Intake & Output 06/02/23 06/03/23 06/04/23 06/05/23 23:59 23:59 23:59 23:59 Intake Total 1000 3555.7 770 Balance 1000 3555.7 770 Meds/Results Medications: Active Medications Generic Name Dose Route Start Last Admin Trade Name Freq PRN Reason Stop Dose Admin Acetaminophen 500 mg 06/03/23 15:46 Acetaminophen 500 Mg Tablet PO Q4H PRN Mild Pain (1-3) or Fever Hydrocodone Bitart/Acetaminophen 1 tab 06/03/23 15:46 Hydrocodone/Acetaminophen (*Crx) 5-325 Mg Tablet PO Q6H PRN Pain Rated 4-6 Morphine Sulfate 2 mg 06/03/23 13:31 Morphine Sulfate (*Crx) 2 Mg/Ml Inj IV PUSH Q2H PRN Pain Rated 7-10 Ondansetron HCl 4 mg 06/03/23 13:31 Ondansetron Inj 4 Mg/2 Ml Vial IV PUSH Q4H PRN Nausea Pantoprazole Sodium 40 mg 06/05/23 09:00 06/05/23 08:26 Pantoprazole Sodium Iv 40 Mg Vial IV PUSH 40 mg QAM TYRELL Administration Radiology Results: ITS Impressions Upper [place] Ultrasound 06/03/23 13:09 IMPRESSION: 1. Gallbladder sludge. No evidence of acute cholecystitis. MRCP 06/04/23 12:30 IMPRESSION: 1. Cholelithiasis. No choledocholithiasis. Labs Labs: Laboratory Results - last 24 hr 06/05/23 05:48 WBC 6.3 RBC 5.20 Hgb 15.3 Hct 44.7 MCV 86.0 MCH 29.4 MCHC 34.
[2023-06-05 13:40] VITALS: BP 121/82; PULSE 70; RESP 16; TEMP 36.7; O2SAT 100
--- NOTE | 2023-06-05 15:42 | PM.IMPN ---
Progress Note: A&P Assessment and Plan (1) Biliary colic: Code(s): K80.50 - Calculus of bile duct without cholangitis or cholecystitis without obstruction Status: Acute Assessment and Plan: Patient presents with recurrent epigastric pain, first evaluated in Mar. RUQ March 2023 showing cholelithiasis with GB wall thickening. Planned elective cholecystectomy for 05/30 but patient cancelled b/c pain resolved with low fat diet Returns for recurrent pain. RUQ US showing GB sludge but no evidence of cholecystitis and nml CBD. Lipase mildly elevated but now normal. LFTs were elevated but trending down now. MRCP showing no choledocholithiasis. GenSurg consulted. Dite advanced and toelrating. Stop IVF Discussed with GenSurg - plan for CCY tomorrow. (2) Acute pancreatitis: Code(s): K85.90 - Acute pancreatitis without necrosis or infection, unspecified Status: Acute Assessment and Plan: Presumably has pancreatitis with pain and lipase of 626 Passed stone? Denies alcohol use. TG normal. Lipase normal now and pain better. Follow (3) Elevated LFTs: Code(s): R79.89 - Other specified abnormal findings of blood chemistry Status: Acute Assessment and Plan: AST 219, ALT 142, TB 1.2, AP 112 Related to passed stone? Hepatitis panel negative. LFTs better Trend LFTs (4) Umbilical hernia without mention of obstruction or gangrene: Qualifiers: Obstruction and gangrene presence: without obstruction or gangrene Qualified Code(s): K42.9 - Umbilical hernia without obstruction or gangrene Code(s): K42.9 - Umbilical hernia without obstruction or gangrene Status: Chronic Assessment and Plan: CT scan in March 2023 showing moderate fat-containing umbilical hernia GenSurg following Dr Davis previously offered potential repair during the previously scheduled elective cholecystectomy Plan GI Prophylaxis: pantoprazole IVP DVT Prophylaxis: SCDs Code Status: Full Code Subjective Date/time seen: 06/05/23 15:42 Interval history: 33yo healthy male with cholelithiasis here with epigastric pain. No complaints. Mild abdominal pain. +Diarrhea. No n/v. Exam Narrative: AF 98.0 121/82 70 16 100% ra Gen - NARD Chest - CTA bilaterally, nml RR CV - RRR S1/S2 Abd - Soft, NT/ND, Positive BS Ext - No pedal edema Psych - Nml mood and affect Skin - Warm and dry Objective Data Vital Signs Vital Signs: Vital Signs - 24 hr 06/04/23 22:00 06/05/23 05:51 06/05/23 08:25 Temperature 97.9 F 98.3 F Pulse Rate 66 61 Respiratory Rate 16 16 Blood Pressure 115/78 129/79 Pulse Oximetry 97 98 Oxygen Delivery Room Air 06/05/23 13:40 Temperature 98.0 F Pulse Rate 70 Respiratory Rate 16 Blood Pressure 121/82 Pulse Oximetry 100 Oxygen Delivery Intake/Output Intake/Output: Intake & Output 06/02/23 06/03/23 06/04/23 06/05/23 23:59 23:59 23:59 23:59 Intake Total 1000 3555.7 890 Balance 1000 3555.7 890 Meds/Results Medications: Active Medications Generic Name Dose Route Start Last Admin Trade Name Freq PRN Reason Stop Dose Admin Acetaminophen 500 mg 06/03/23 15:46 Acetaminophen 500 Mg Tablet PO Q4H PRN Mild Pain (1-3) or Fever Hydrocodone Bitart/Acetaminophen 1 tab 06/03/23 15:46 Hydrocodone/Acetaminophen (*Crx) 5-325 Mg Tablet PO Q6H PRN Pain Rated 4-6 Morphine Sulfate 2 mg 06/03/23 13:31 Morphine Sulfate (*Crx) 2 Mg/Ml Inj IV PUSH Q2H PRN Pain Rated 7-10 Ondansetron HCl 4 mg 06/03/23 13:31 Ondansetron Inj 4 Mg/2 Ml Vial IV PUSH Q4H PRN Nausea Pantoprazole Sodium 40 mg 06/05/23 09:00 06/05/23 08:26 Pantoprazole Sodium Iv 40 Mg Vial IV PUSH 40 mg QAM TYRELL Administration Radiology Results: ITS Impressions Upper Quadrant Ultrasound 06/03/23 13:09 IMPRESSION: 1. Gallbladder sludge. No evidence of acute cho
[2023-06-05 21:10] VITALS: BP 123/74; PULSE 72; RESP 18; TEMP 36.6; O2SAT 99
[2023-06-06] VITALS (8 sets, daily range): BP systolic 117–134; BP diastolic 70–79; PULSE 62–90; RESP 12–21; TEMP 36.5–36.9; O2SAT 95–100
--- NOTE | 2023-06-06 07:06 | PC.NURSE ---
Patient and down to OR at this time.
--- NOTE | 2023-06-06 07:26 | WPDANESEPPF ---
Anes - Initial Pre Proc Eval Procedure: Operation Date: 06/06/23 07:30 Proposed Procedures p Laparoscopic Cholecystectomy - Jo Oliva MD s Umbilical Hernia Repair - Jo Oliva MD Date/Time: 06/06/23 07:26 Surgeon: Lolita Briones MD Pre Op Diagnosis: Pancreatitis,Biliary Colic,Transaminitis Patient Data Age: 33 Gender: M Height: 1.83 m Weight: 90.9 kg Last Vital Signs Temp 36.5 C 06/06/23 06:00 Pulse 62 06/06/23 06:00 Resp 16 06/06/23 06:00 BP 119/79 06/06/23 06:00 Pulse Ox 100 06/06/23 06:00 O2 Del Method Room Air 06/05/23 20:00 Allergies Allergy/AdvReac Type Severity Reaction Status Date / Time No Known Allergies Allergy Verified 06/03/23 11:31 Home Medications Medication Instructions Recorded Confirmed Type hydrocodone 5 mg-acetaminophen 325 1 tablet PO Q8H PRN pain #14 tabs 03/31/23 06/03/23 Rx mg tablet Patient hx anesthesia problems: none Family hx anesthesia problems: none Results Review: All pre-operative results and documents have been reviewed as part of the pre-operative evaluation. [facility] Past Medical History Medical History (Updated 06/04/23 @ 19:18 by Rufus Ritter MD) Gallstone pancreatitis Nausea No active medical problems Surgical History Surgical History No pertinent past surgical history Family History Family History Other Cancer Diabetes mellitus Hypertension Social History Social History Smoking status: Former smoker Alcohol intake: current Alcohol use details: socially Substance use: never Do You Feel Safe in your Home?: Yes Lack of Transportation: No Lack of Food: Never True Current Housing: I Have Housing Concerned About Future Housing: No Difficulty Paying Gas/Electric Bills: No Difficulty Paying for Meds: No Currently Unemployed: No Education: Decline to Answer Difficulty w/ Childcare or Family Care: No Occupation/Education: occupation 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 Informed Consent: The patient's anesthetic plan and its attendant risks and benefits were discussed with the patient/family/POA. Questions were solicited and answers provided to the satisfaction of the patient/family/POA.
[2023-06-06] MEDS: ceFAZolin 2 GM/D5W 50 ML 2 GM/50 ML BAG IVPB (07:38)
[2023-06-06] MEDS: BUPIVACAINE/EPINEPHRINE 0.5% 30 ML VIAL INFILTRATE (08:01)
--- NOTE | 2023-06-06 08:39 | SUR.OPER ---
UNDERWARE AND SWEAT PANTS WITH AMAYA IN PRE OP. TAKEN TO PATIENT ROOM. VOIDED PRE OP.
--- NOTE | 2023-06-06 08:44 | WPDHPUPDATE1 ---
History and Physical Update Update Date/Time: 06/06/23 08:44 History and Physical has been reviewed, including an updated exam of the patient. There are NO changes in the patient's condition. Risks, benefits, and alternatives have been discussed and questions answered. Patient agrees to proceed with procedure.
--- NOTE | 2023-06-06 08:44 | W.PM.PROC2 ---
Procedure Note - Detailed Date of Procedure 06/06/23 Pre-op Diagnosis biliary pancreatitis, incarcerated umbilical hernia 2 cm defect Post-op Diagnosis Same Procedure Performed Laparoscopic cholecystectomy, primary repair of incarcerated umbilical hernia measuring 2 cm Surgeon Jo Oliva MD Anesthesia General Indications 33-year-old male presenting to the emergency department with biliary pancreatitis, choledocholithiasis. Patient admitted and pancreatitis and LFTs normalizing indicating passage of common bile duct stone. MRCP confirmatory of passage with noted cholelithiasis. Patient now set up for interval cholecystectomy. Patient also with incarcerated umbilical hernia. Findings Cholecystitis with cholelithiasis , incarcerated umbilical hernia 2 cm defect Description of Procedure The patient was taken to the operating room placed in the supine position. After adequate induction of general anesthesia, the patient was prepped and draped in normal sterile fashion. A time-out was then performed to verify the patient's identity as well as the procedure being performed. I then made a 5 mm incision in the infraumbilical region. Through this, a Veress needle was placed into the peritoneal cavity and CO2 gas was then insufflated. After adequate pneumoperitoneum was achieved, the Veress needle was removed and a 5 mm optiview trocar was placed through this incision under direct visualization. I then placed the laparoscope through this trocar site and under direct visualization placed a further 12 mm subxiphoid port as well as 2 additional 5 mm ports in the right upper abdomen. The gallbladder was then identified and was noted to be moderately inflamed, distended, and full of gallstones. I was able to place a grasper at the dome of the gallbladder and this was retracted anterior and cephalad up over the liver. A 2nd retractor was then placed at the infundibulum and retracted laterally, this allowed visualization of the triangle of Calot. I then was able to visualize the cystic duct in its entirety from its proximal insertion into the gallbladder, to its distal junction with the common hepatic/common bile duct junction. At this point, I carefully skeletonized the proximal cystic duct with the [place] dissector. I then clipped and transected the proximal cystic duct. Next I visualized the cystic artery. Again the artery was skeletonized, clipped, and transected. I then used the Bovie cautery to take down the peritoneal attachments of the gallbladder off the liver bed. Once the gallbladder specimen was completely detached, an endo-pouch was placed through the 12 mm port site. I then placed the gallbladder specimen into the Endo pouch and removed the endo-pouch from the 12 mm port site. The specimen will now be sent to pathology for further review. I then copiously irrigated the right upper quadrant. Hemostasis was noted in the liver bed, the clips were noted to be in good position on both the cystic duct stump and the cystic artery stump. No other pathology was noted in the right upper quadrant. I then moved the laparoscope to the subxiphoid port. No iatrogenic injury or other pathology was noted in the lower abdomen. I then closed the 12 mm trocar site under direct visualization using the Joshua cone and 0 Vicryl suture. At this point, the abdomen was desufflated and all ports removed. All port sites were then closed with 4.O Monocryl subcuticular sutures. Dermabond was placed on each incision. I then enlarged the incision in the infraumbilical region. This curvilinear incision was carried down to the level of the fascia. Using careful dissection, I was able to dissect the hernia off the overlying umbilicus. Once completely dissected, I removed the hernia sac. The contents of the incarcerated hernia were noted to be preperitoneal fat and omentum. This was all viable and reduced back into the abdominal cavity. Once reduced, this left a 2 cm defect
[2023-06-06] MEDS: LACTATED RINGERS 1,000 ML 30 ML IV CONT (08:49)
[2023-06-06] MEDS: fentaNYL CITRATE INJ (*CRX) 100 MCG/2 ML VIAL 25 MCG IV PUSH ×4 (09:01→09:43)
[2023-06-06] MEDS: HYDROcodone/acetaminophen (*CRX) 5-325 MG TABLET 1 TAB PO (10:53)
--- NOTE | 2023-06-06 17:16 | PM.DS ---
DS: Admitting Diagnosis Discharge Date 06/06/23 Admitting Diagnosis Abdominal pain DS: Discharge Diagnosis Discharge Diagnosis (1) Biliary colic: Code(s): K80.50 - Calculus of bile duct without cholangitis or cholecystitis without obstruction Status: Acute (2) Elevated LFTs: Code(s): R79.89 - Other specified abnormal findings of blood chemistry Status: Acute (3) Umbilical hernia without mention of obstruction or gangrene: Qualifiers: Obstruction and gangrene presence: without obstruction or gangrene Qualified Code(s): K42.9 - Umbilical hernia without obstruction or gangrene Code(s): K42.9 - Umbilical hernia without obstruction or gangrene Status: Chronic (4) Gallstone pancreatitis: Code(s): K85.10 - Biliary acute pancreatitis without necrosis or infection Status: Acute DS: Summary Hospital Course Reason for hospitalization: 33yo healthy male with cholelithiasis here with epigastric pain. Please see H&P for details. Hospital Course: Patient presented with recurrent epigastric pain, first evaluated in Mar. RUQ March 2023 showing cholelithiasis with GB wall thickening. Planned elective cholecystectomy for 05/30 but patient cancelled b/c pain resolved with low fat diet. Returns for recurrent pain. RUQ US showing GB sludge but no evidence of cholecystitis and nml CBD. Lipase mildly elevated but now normal. LFTs were elevated but trending down. MRCP showing no choledocholithiasis. Possible passed stone. GI and GenSurg consulted. Patient underwent a laparoscopic cholecystectomy with primary repair of incarcerated umbilical hernia measuring 2 cm on 06/06/23. He toelrated the procedure well. He overall did well and was able to be discharged home on 06/06/23. Status at Discharge Cognitive/behavioral status at discharge: stable Time Spent with Patient Time attestation: Total time spent providing and/or coordinating discharge services: 28 minutes Time spent: Less than 30 minutes Exam Narrative: AF 98.5 129/77 88 18 95% ra Gen - NARD Chest - CTA bilaterally, nml RR CV - RRR S1/S2 Abd - Soft, incision well approximated, minimal tenderness Ext - No pedal edema Psych - Nml mood and affect Skin - Warm and dry DS: Data Data Completed and Pending Pending studies at discharge: Pending at discharge 03/17/24 08:15 Surgical [PTH] Routine Discharge Plan Discharge Attending physician on discharge: Jose Alejandro Naranjo Consulting providers: Rufus Ritter; Al Maloney Discharging Clinician: Jose Alejandro Naranjo Anticipated Discharge Date/Time: 06/06/23 17:22 Patient Disposition: Home, Self-Care Activity: may shower, no straining and other - see discharge instructions Diet: as tolerated Wound Care Instructions: other - see discharge instructions Discharge Instructions: DISCHARGE INSTRUCTION SHEET FOR HERNIA, GALLBLADDER AND APPENDIX SURGERIES DR. DENISE PATIENT TO TAKE HOME 1. May shower in 24 hours, no soaking in bath x 2weeks. 2. Call office for: Wound increasingly painful or bleeding Vomiting Fever of greater than 101 degrees 3. If no bowel movement for three days, take 1 oz. (30 ml) Milk of Magnesia or MiraLax 17g 1 to 2 times daily. 4. No heavy lifting > 10-15 pounds x 6 weeks for hernia repairs and 2 weeks for laparoscopic cholecystectomy or appendectomy. 5. No driving for 3 days or while taking narcotic pain medications. 6. Ice to surgical site for 48 hours (30 min on, then 30 min off). 7. Up walking 10-30 minutes three times per day. 8. Resume previous home medications. 9. Follow-up 10-14 days in office for wound check or as previously scheduled. ([phone]) 10. Oral pain medications prescription to be sent to pharmacy. Take Tylenol 500mg every 6 hours and Ibuprofen 600mg every 6 hours for the first 2 days, the
== END 2023-06-06 17:59 | disposition home or self-care (01) ==
LOC: ANHED 12:13 → ANH3MED 18:39 → ANH2MED 06-07 07:40 → ANH3MED 06-07 07:40 → ANH3MEDSUR 06-07 07:40
PROVIDERS: Nurse Practitioner Family; Surgery; Admitting Provider General Practice; Emergency Provider Emergency Medicine; PCP Surgery; Visit Provider Internal Medicine
PROC: 0FT44ZZ Resection of Gallbladder, Percutaneous Endoscopic Approach (ICD-10-PCS; CPT 47562; principal; 2023-06-06 07:30)
PROC: (CPT 47562; 2023-06-06 07:30)
DX: K85.10 Biliary acute pancreatitis without necrosis or infection (principal); K80.10 Calculus of gallbladder with chronic cholecystitis without obstruction; K42.0 Umbilical hernia with obstruction, without gangrene; R94.5 Abnormal results of liver function studies; Z87.891 Personal history of nicotine dependence; Z79.891 Long term (current) use of opiate analgesic
CPT/HCPCS: 47562; 36415; 74183; 76376; 76705; 80053; 80061; 80074; 83690; 85025; 88304; 96360; 96361; 96374; 99285; A9270; A9577; C9113; G0378; J0690; J1100; J1170; J2250; J2405; J2704; J3010; J7030; J7120

== ENCOUNTER 2023-11-20 10:24 | Outpatient (CLI) | payer OTHER, SELFPAY ==
[2023-11-20 11:11] LABS: Basophils Absolute Auto 0.1 K/mm3 (0.0-0.1); Basophils Percent Auto 0.9 % (0.2-1.2); Eosinophils Absolute Auto 0.1 K/mm3 (0-0.3); Eosinophils Percent Auto 1.2 % (0-4.4); Hematocrit 45.8 % (42.0-52.0); Hemoglobin 16.2 g/dL (14.0-18.0); Immature Granulocyte Absolute 0.01 K/mm3 (0.00-0.031); Immature Granulocyte Percent A 0.2 % (0-0.5); Lymphocytes Absolute Auto 2.38 K/mm3 (0.9-3.2); Lymphocytes Percent Auto 36.5 % (18.3-44.2); Mean Corpuscular HGB Conc 35.4 g/dl (32-36); Mean Corpuscular Hemoglobin 30.1 pg (26-34); Mean Corpuscular Volume 85.1 fl (80-100); Mean Platelet Volume 9.7 fl (7.4-10.4); Monocytes Absolute Auto 0.4 K/mm3 (0.1-0.6); Monocytes Percent Auto 5.8 % (2.6-8.5); Neutrophils Absolute Auto 3.6 K/mm3 (1.3-6.7); Neutrophils Percent Auto 55.4 % (45.5-73.1); Platelet Count Result 235 k/mm3 (150-375); Red Blood Count 5.38 M/mm3 (4.6-6.20); Red Cell Distribution Width 11.9 % (11.5-14.5); White Blood Count 6.5 K/mm3 (4.5-10.0)
[2023-11-20 11:24] LABS: Alanine Aminotransferase 23 U/L (6-50); Albumin Level 4.3 g/dL (3.5-5.1); Alkaline Phosphatase 77 U/L (38-126); Anion Gap 8 mmol/L (4-12); Aspartate Amino Transferase 25 U/L (17-59); Bilirubin,Total 0.5 mg/dL (0.2-1.3); Blood Urea Nitrogen 12 mg/dL (9-20); Calcium 8.7 mg/dL (8.4-10.2); Carbon Dioxide 28 mmol/L (22-30); Chloride 104 mmol/L (98-107); Cholesterol 161 mg/dL (0-200); Estimated Glomerular Filt Rate > 60; Glucose 95 mg/dL (65-110); HDL Direct 45 mg/dL; Potassium 4.1 mmol/L (3.4-5.0); Sodium 140 mmol/L (137-145); Triglycerides 51 mg/dL (<150)
[2023-11-20 11:34] LABS: LDL Cholesterol Direct 99 mg/dL
[2023-11-20 11:46] LABS: Free T4 Free Thyroxine 1.05 ng/mL (0.78-2.19); Hemoglobin A1C 5.3 % (<5.7)
== END 2023-11-20 10:25 | disposition home or self-care (01) ==
LOC: ANHLAB 10:35
PROVIDERS: PCP Surgery; Visit Provider Physician Assistant
DX: Z00.00 Encounter for general adult medical examination without abnormal findings (principal); Z13.220 Encounter for screening for lipoid disorders; Z13.1 Encounter for screening for diabetes mellitus; Z13.29 Encounter for screening for other suspected endocrine disorder
CPT/HCPCS: 36415; 80053; 80061; 83036; 84439; 84443; 85025